=== PATIENT | female | born 1940 | race Caucasian/White ===

== ENCOUNTER 2016-11-03 11:56 | Inpatient (IN) | payer OTHER ==
[~2016-11-03] VITALS: Ht 165.1 cm; Wt 88.5 kg
--- NOTE | ~2016-11-03 | CON ---
[place], [place] REPORT OF CONSULTATION NAME: DARREN MORGAN [facility] #: [id number] UNIT #: [id number] ROOM: 519 DOCTOR: MINDI HERNANDEZ MD,VERÓNICA BIRTHDATE: [birth year] DOS: 11/04/2016 REASON FOR CONSULTATION: Consultation was done for the patient is to assess the current symptoms of cough as well as a lung mass. HISTORY OF PRESENT ILLNESS: This is a 76-year-old female who came into the Emergency Room. She was stating symptoms of having increased coughing, chest congestion as well as increased shortness of breath. The patient stated that she has been described as walk-in pneumonia previously. The symptoms actually started in July with nasal congestion and postnasal drainage and nasal discharge. Later the patient developed significant chest congestion. The chest congestion of the patient noted significant worsening. The cough has been described as a clear sputum expectoration. She was complaining of some shortness of breath with exertion. Denies any pain in the chest. Denies any symptoms of wheezing. The patient denies symptoms of hemoptysis. The patient was seen in the Emergency Room. Chest x-ray of the patient was noted with possibility of mass infiltration in the right lower lobe; advised CT scan of the chest, which was completed. She has been currently admitted to the hospital for further assessment and medical management of current problems. REVIEW OF SYSTEMS: CONSTITUTIONAL: Fatigue and tiredness noted without symptoms of fever or chills. EYES: Denies any burning, redness or tenderness. EAR, NOSE, THROAT SYMPTOMS: Denies sore throat, hoarseness, otalgia, postnasal drainage. CARDIOVASCULAR: Denies any angina pain, edema or pain of the lower extremities. Denies palpitations. GASTROINTESTINAL: The patient stated that she has intentional weight loss for 20 pounds or more for this patient with dietary management for the patient in the past 6-8 months. Denies any symptoms of anorexia. Denies symptoms of hematemesis, melena, hematochezia, nausea, vomiting, diarrhea or dysphagia. GENITOURINARY: Denies dysuria, suprapubic pain or hematuria. MUSCULOSKELETAL: Denies acute joint pain, redness or tenderness. SKIN: Denies lesions or rashes. CENTRAL NERVOUS SYSTEM: Denies dizziness, headache, diplopia or syncopal episodes. Remaining systems were reviewed with the patient, they were noted all negative. PAST MEDICAL HISTORY: History of essential hypertension. SOCIAL HISTORY: The patient has been noted with history of tobacco use in the past, started at younger age half a pack of cigarettes per day to a pack of cigarettes per day that was discontinued 32 years ago. She is and has 2 children. PAST SURGICAL HISTORY: Described: 1. Cholecystectomy. 2. Tubal ligation. [place], [place] REPORT OF CONSULTATION NAME: DARREN MORGAN UNIT #: [id number] ROOM: [facility] DOCTOR: VERÓNICA CUBA MD BIRTHDATE: [birth year] FAMILY HISTORY: Noted as noncontributory. MEDICATIONS: The home medications noted as the use of: 1. Hydrochlorothiazide for the patient and lisinopril combination 03/23.5 once a day. 2. Aspirin 81 mg p.o. daily. DRUG ALLERGIES: Noted no known drug allergies. PHYSICAL EXAMINATION: GENERAL: This is a 76-year-old female who has been currently noted awake and alert without any distress for this patient at this time, sitting comfortably on her bed. Height of the patient recorded by the nursing staff at the time of the current admission with height of 5 feet 5 inches, weight of 195 pounds, BMI 32.4. VITAL SIGNS: The patient shows a normal temperature, respiratory rate 18-20, heart rate 98-109, blood pressure 157/72-134/74. The pulse oxygen saturation of the patient recorded as % for this patient on room air. HEENT: Examination shows head was atraumatic. Eyes nonicterus. NECK: Supple. Oral mucosa was moist. CARDIOVASCULAR: S1, S2 audible. LUNGS: Noted without any wheezing or crackles, decreased breath sounds noted in the right lower lung. ABDOMEN: Soft, nontender, bowel sounds present. EXTREMITIES: Show no edema, clubbing, cyanosis. CENTRAL NERVOUS SYSTEM: Cranial nerves 2-12 intact. No focal deficit. MUSCULOSKELETAL: Does not show any acute deformities. LABORATORY DATA: CBC for the patient on 11/03/2016, CBC was essentially noted as normal CBC. PT, PTT on 11/03/2016 was normal. Lactic acid on 11/03/2016 was normal. CMP of the patient 11/03/2016, BUN and creatinine was normal. The proBNP 245, minimally elevated. Remaining CMP was normal. CBC of this patient on 11/04/2016, repeated again noted normal WBC count, platelet count, hemoglobin, and hematocrit. CMP of the patient 11/04/2016 for this patient's glucose 126, remaining CMP was normal. PT/PTT repeated again this morning was noted as normal. Chest x-ray of patient and the CT scan of the chest was reviewed. Chest x-ray 11/03/2016 shows suspected mass lesion for the patient, which was noted in the right hilar area 4 cm in size for this patient. There was no other preceding chest x-ray of the patient except in 2004, which was noted normal. The CT scan of the chest, which was completed with IV contrast for this patient was personally reviewed, shows patient was noted with a mass lesion, which was noted in the right lower lobe for this patient in the medial subsegment for this patient as well. Lymphadenopathy was also noted in the right hilar area for this patient as well. The mass was measured at 9.2 x 6.3 cm in size. Several 2- to 3-mm nodules were noted in the right middle lobe as well. Right hilar lymph node large size was noted 2.3 cm in the size. Left lung was noted clear for any abnormal lesions. IMPRESSION: [place], [place] REPORT OF CONSULTATION NAME: DARREN MORGAN UNIT #: [id number] ROOM: [facility] DOCTOR: ANATOLY CUBA MDM BIRTHDATE: [birth year] 1. The patient who has been currently admitted to the hospital noted with current acute symptoms of coughing and acute bronchitis, noted incidental finding of large mass lesion and lymphadenopathy with a strong suspicion of primary lung malignancy very likely. 2. History of tobacco use until 32 years ago for this patient was known as well. 3. History of essential hypertension. 4. Weight loss. The patient whether intentional or unintentional at this time cannot be clearly defined. PLAN OF TREATMENT: At this time, the patient could be treated for the acute tracheobronchitis with oral antibiotics. She will require fiberoptic bronchoscopy and transbronchial biopsy assessment for the patient. The procedure could be done as an outpatient for further assessment. The risks and benefits of procedure have been discussed with the patient in detail. Further treatment changes need to be done for this patient based on the progression of the illness as necessary. The primary care attending of this patient has been informed for this patient for the discharge. I have already scheduled the fiberoptic bronchoscopy in the patient as an outpatient to be done on Monday morning for the patient at 9 o'clock with fluoroscopy. Pulmonary consultation and evaluation and management. Thank you for allowing me to participate in the care of this patient. VERÓNICA OBREGON MD CM:CONSTR:REPORT OF CONSULTATION 1212 11/05/16 0624 interface
[2016-11-03 12:09] VITALS: BP 161/78
[2016-11-03] MEDS ORDERED: LISINOPRIL AND1 TAB PO (12:23)
[2016-11-03] MEDS ORDERED: ASPIRIN CHEWABL81 MG PO (12:23)
[2016-11-03 12:40] LABS: BASO # 0.1 10*3/uL (0.0-0.1); BASO % 1.3 % (0.0-1.0); EOS # 0.5 10*3/uL (0.0-0.4); EOS % 6.7 % (1.0-4.0); HEMATOCRIT 41.2 % (37.0-47.0); HEMOGLOBIN 13.1 g/dl (12.0-16.0); LYMPH # 1.3 10*3/uL (1.3-4.4); LYMPH % 19.4 % (27.0-41.0); MEAN CELL VOLUME 84.1 fl (81.0-99.0); MEAN CORPUSCULAR HGB 26.7 pg (27.0-31.0); MEAN CORPUSCULAR HGB CONC 31.8 g/dl (33.0-37.0); MEAN PLATELET VOLUME 10.8 fl (9.6-12.3); MONO # 0.8 10*3/uL (0.1-1.0); MONO % 10.9 % (3.0-9.0); NEUT # 4.2 10*3/uL (2.3-7.9); NEUT % 61.3 % (47.0-73.0); PLATELET COUNT AUTOMATED 309 10*3/uL (130-400); RED CELL DISTRI WIDTH 14.5 % (0-14.5); WHITE BLOOD COUNT 6.9 10*3/uL (4.8-10.8)
[2016-11-03 12:48] LABS: PROTHROMBIN TIME 10.7 SECONDS (9.0-12.4)
[2016-11-03 12:55] LABS: ALBUMIN 3.7 gm/dl (3.1-4.5); ALKALINE PHOSPHATASE 88 U/L (45-117); BILIRUBIN, TOTAL 0.4 mg/dl (0.2-1.0); BUN 20 mg/dl (7-24); C-REACTIVE PROTEIN 0.49 MG/DL (0-0.3); CARBON DIOXIDE 25 mmol/L (21-32); CHLORIDE 103 mmol/L (98-107); CKMB 1.5 ng/ml (0.5-3.6); CPK 85 U/L (26-192); EST GLOM FILT AFRICAN AMERICAN > 60 ml/min; GLUCOSE 87 mg/dL (65-99); MAGNESIUM 2.3 mg/dL (1.5-2.1); POTASSIUM 3.9 mmol/L (3.5-5.1); SGOT/AST 29 IU/L (3-35); SGPT/ALT 21 U/L (12-78); SODIUM 138 mmol/L (136-145); TOTAL PROTEIN 8.7 gm/dL (6.4-8.2); TROPONIN I < 0.015 ng/ml (<0.045)
[2016-11-03 16:07] VITALS: BP 146/72
[2016-11-03 17:27] VITALS: BP 134/74
[2016-11-03 20:00] VITALS: BP 157/72
[2016-11-04] VITALS: BP 152/73
[2016-11-04 06:50] LABS: HEMATOCRIT 40.5 % (37.0-47.0); HEMOGLOBIN 12.8 g/dl (12.0-16.0); IG # 0.1 10*3/uL (0.0-0.1); LYMPH # 0.7 10*3/uL (1.3-4.4); MEAN CELL VOLUME 83.7 fl (81.0-99.0); MEAN CORPUSCULAR HGB 26.4 pg (27.0-31.0); MEAN CORPUSCULAR HGB CONC 31.6 g/dl (33.0-37.0); MONO # 0.1 10*3/uL (0.1-1.0); MONO % 1.4 % (3.0-9.0); NEUT # 6.4 10*3/uL (2.3-7.9); NEUT % 87.8 % (47.0-73.0); PLATELET COUNT AUTOMATED 350 10*3/uL (130-400); RED BLOOD COUNT 4.84 10*6/uL (4.10-5.10); RED CELL DISTRI WIDTH 14.5 % (0-14.5); WHITE BLOOD COUNT 7.3 10*3/uL (4.8-10.8)
[2016-11-04 07:02] LABS: ALBUMIN 3.5 gm/dl (3.1-4.5); ALKALINE PHOSPHATASE 78 U/L (45-117); BILIRUBIN, TOTAL 0.3 mg/dl (0.2-1.0); BUN 22 mg/dl (7-24); CARBON DIOXIDE 25 mmol/L (21-32); CHLORIDE 102 mmol/L (98-107); CHOLESTEROL 249 mg/dL (<200); EST GLOM FILT AFRICAN AMERICAN > 60 ml/min; FREE T4 1.06 ng/dl (0.76-1.46); GLUCOSE 136 mg/dL (65-99); HDL CHOLESTEROL 49 mg/dl (40-60); LDL CHOLESTEROL 179 mg/dL (9-159); MAGNESIUM 2.3 mg/dL (1.5-2.1); PHOSPHOROUS 3.3 mg/dL (2.5-4.9); SGOT/AST 24 IU/L (3-35); SGPT/ALT 20 U/L (12-78); SODIUM 138 mmol/L (136-145); TOTAL PROTEIN 8.6 gm/dL (6.4-8.2); TRIGLYCERIDES 105 mg/dl (<150); VLDL CHOLESTEROL 21 mg/dL (6-40)
[2016-11-04 07:07] LABS: THYROID STIM HORMONE (HS) 0.669 uIU/ml (0.358-4.75)
[2016-11-04 07:29] LABS: PROTHROMBIN TIME 11.1 SECONDS (9.0-12.4)
[2016-11-04 07:42] LABS: HEMOGLOBIN A1c 5.7 % (4.8-5.6)
[2016-11-04 08:00] VITALS: BP 150/75
[2016-11-04 08:18] LABS: FOLIC ACID 14.93 ng/mL (>5.38); VITAMIN D, 25-HYDROXY 29.7 ng/mL (30-100)
[2016-11-04] MEDS ORDERED: DOXYCYCLINE100 M3 PO (10:02)
[2016-11-04] MEDS ORDERED: PROAIR HFA8.5 GM INH (10:03)
== END 2016-11-04 11:00 | disposition home or self-care (01) | DRG 189 ==
LOC: ED 11:56 → EDHOLD 17:11 → 5E 17:11
PROVIDERS: Emergency Medicine; Internal Medicine
DX: J96.20 Acute and chronic respiratory failure, unspecified whether with hypoxia or hypercapnia (principal); J18.9 Pneumonia, unspecified organism; J45.909 Unspecified asthma, uncomplicated; I10 Essential (primary) hypertension; J20.9 Acute bronchitis, unspecified; R91.8 Other nonspecific abnormal finding of lung field; Z87.891 Personal history of nicotine dependence; Z88.1 Allergy status to other antibiotic agents; Z79.82 Long term (current) use of aspirin; Z79.899 Other long term (current) drug therapy; Z90.49 Acquired absence of other specified parts of digestive tract; Z98.51 Tubal ligation status

== ENCOUNTER → 2016-11-08 | Day surgery (SDC) | payer OTHER ==
[~2016-11-08] VITALS: Ht 165.1 cm; Wt 88.5 kg
[~2016-11-08] MED LIST: ASPIRIN CHEWABL81 MG PO; DOXYCYCLINE100 M3 PO; LISINOPRIL AND1 TAB PO; PROAIR HFA8.5 GM INH
--- NOTE | ~2016-11-08 | PROC NOTE ---
[place], [place] PROCEDURE NOTE NAME: [facility]EN MORGAN [facility] [id number] UNIT #: [id number] ROOM: DOCTOR: MINDI HERNANDEZ MD,VERÓNICA BIRTHDATE: [birth year] DOS: 11/08/2016 PREOPERATIVE DIAGNOSIS: The patient with right lower lung mass. POSTOPERATIVE DIAGNOSES: The patient with right lower lung mass. PROCEDURE DESCRIPTION: Informed consent obtained for the patient. She was brought to OR placed in supine position. Conscious sedation administered by the Anesthesia Department after achieving appropriate sedation, airway introduced into the mouth. Bronchoscope advanced into the airway into laryngeal area. Epiglottis and vocal cords were seen. Vocal cord was noted yellowish in color moving symmetrically with movements. Bronchoscope advanced to the vocal cord and tracheal lumen. Tracheal lumen was noted without any significant secretions. The won was identified for the patient, which was noted sharp. The right upper, right middle, right lower lobe bronchial opening was all noted patent. The right upper and middle lobe opening was also noted patent. There was infiltration of the tumor was noted in the lower portion of the right main stem bronchus as well as a significant narrowing of the superior segment of the right upper lobe and subsegment of the right lower lobe as well. The transbronchial biopsy for this patient was done with the help of fluoroscopy patient without any difficulty. The biopsies for this patient were sent for the pathology analysis. Minimal bleeding was noted less than 1 mL for this patient. The procedure well tolerated by the patient without any complications. Postoperative findings were discussed with the patient's . A followup appointment will be established in office to discuss the findings of the bronchoscopy. VERÓNICA OBREGON MD CM:PROCNOTE:PROCEDURE NOTE [id number] VERÓNICA HERNANDEZ MD
[2016-11-08 08:00] VITALS: BP 166/92
[2016-11-08 09:03] VITALS: BP 174/89
[2016-11-08 09:15] VITALS: BP 162/79
[2016-11-08 09:33] VITALS: BP 150/96
[2016-11-09 15:07] LABS: ACID FAST SPEC PROCESSING Concentration (.)
== END | disposition home or self-care (01) ==
LOC: SDC 11-04 14:00
PROVIDERS: Internal Medicine Critical Care Medicine
DX: D49.1 Neoplasm of unspecified behavior of respiratory system (principal); I10 Essential (primary) hypertension; Z87.891 Personal history of nicotine dependence

== ENCOUNTER 2017-01-12 22:07 | Emergency (ER) | payer OTHER ==
[~2017-01-12] VITALS: Ht 162.5 cm; Wt 86.2 kg
[2017-01-12 22:43] LABS: BASO # 0.1 10*3/uL (0.0-0.1); BASO % 0.5 % (0.0-1.0); EOS # 0.4 10*3/uL (0.0-0.4); HEMATOCRIT 39.2 % (37.0-47.0); HEMOGLOBIN 12.6 g/dl (12.0-16.0); IG # 0.1 10*3/uL (0.0-0.1); LYMPH # 1.1 10*3/uL (1.3-4.4); LYMPH % 9.4 % (27.0-41.0); MEAN CELL VOLUME 83.9 fl (81.0-99.0); MEAN CORPUSCULAR HGB CONC 32.1 g/dl (33.0-37.0); MEAN PLATELET VOLUME 10.6 fl (9.6-12.3); MONO % 8.5 % (3.0-9.0); NEUT # 9.1 10*3/uL (2.3-7.9); NEUT % 78.1 % (47.0-73.0); PLATELET COUNT AUTOMATED 266 10*3/uL (130-400); RED BLOOD COUNT 4.67 10*6/uL (4.10-5.10); RED CELL DISTRI WIDTH 15.9 % (0-14.5); WHITE BLOOD COUNT 11.7 10*3/uL (4.8-10.8)
[2017-01-12 22:51] LABS: PROTHROMBIN TIME 10.7 SECONDS (9.0-12.4)
[2017-01-12 22:59] LABS: ALBUMIN 3.7 gm/dl (3.1-4.5); ALKALINE PHOSPHATASE 97 U/L (45-117); BILIRUBIN, TOTAL 0.3 mg/dl (0.2-1.0); BUN 19 mg/dl (7-24); CARBON DIOXIDE 25 mmol/L (21-32); CHLORIDE 102 mmol/L (98-107); EST GLOM FILT AFRICAN AMERICAN > 60 ml/min; GLUCOSE 117 mg/dL (65-99); POTASSIUM 3.7 mmol/L (3.5-5.1); SGOT/AST 32 IU/L (3-35); SGPT/ALT 21 U/L (12-78); SODIUM 136 mmol/L (136-145); TOTAL PROTEIN 8.1 gm/dL (6.4-8.2)
[2017-01-13] MEDS ORDERED: STRIVERDI2.5 MCG/Ac INH (00:09)
== END 2017-01-13 01:15 | disposition short-term general hospital (02) ==
LOC: ED 22:07
PROVIDERS: Emergency Medicine
DX: S12.101A Unspecified nondisplaced fracture of second cervical vertebra, initial encounter for closed fracture (principal); S05.12XA Contusion of eyeball and orbital tissues, left eye, initial encounter; I10 Essential (primary) hypertension; Z88.1 Allergy status to other antibiotic agents; Z79.899 Other long term (current) drug therapy; Z79.82 Long term (current) use of aspirin; Z87.891 Personal history of nicotine dependence; Z85.118 Personal history of other malignant neoplasm of bronchus and lung; V86.69XA Passenger of other special all-terrain or other off-road motor vehicle injured in nontraffic accident, initial encounter; Y93.89 Activity, other specified; Y92.413 State road as the place of occurrence of the external cause; Y99.8 Other external cause status